=== PATIENT | male | born 2000 | race Caucasian/White ===

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

== ENCOUNTER 2022-09-29 23:14 | Emergency (ER) | payer OTHER, SELFPAY ==
--- NOTE | ~2022-09-29 | CT_ITS ---
Non-contrast Head CT History: Hemorrhage Technique: Axial non-contrast imaging of the brain was performed. Dose reduction technique was used on this scan by utilizing automated exposure control and iterative reconstruction technique. The dose -length product (DLP) was 681.00 mGy-cm. Findings: There is no evidence of intracranial hemorrhage, mass lesion, or acute infarct. Brain par enchyma appears normal. The ventricles and subarachnoid spaces are normal in size. The calvarium ap pears normal. The visualized paranasal sinuses and mastoid air cells are clear. Impression: No significant abnormality seen. Reviewed, dictated and finalized at location . Impression: No significant abnormality seen.
[2022-09-29 23:27] VITALS: BP 126/97; PULSE 79; RESP 20; TEMP 36.6; O2SAT 98
--- NOTE | 2022-09-30 00:25 | ED.GENADULT ---
HPI - General Adult General Chief complaint: Unspecified Stated complaint: Dizziness Time Seen by Provider: 09/29/22 23:34 History of Present Illness HPI narrative: Patient is a 22-year-old white male brought in by his mother. Twelve days ago he had 4 episodes lasting about a minute of the sensation of blood running down the back of his scalp. This was associated with some mild headache. Then he feels funny all over after that. He follow-up with his primary care provider 5 days ago who wanted a MRI scheduled which is to be scheduled tomorrow or the next day. Patient is to call radiology department. Tonight he had 4 more episodes this time not associated with any pain lasting for about a minute with the same sensation of blood running down the back of his scalp associated with a funny feeling all over afterwards. During all these episodes he never had any nausea vomiting blurred vision no motor weakness no problems seeing hearing walking talking. He has a grandfather had history of aneurysm and of that. denies any illicit drug use. Drinks occasional alcohol in the weekends. Denies any pain. Social history: Chews tobacco and vapes. 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 Related Data Home Medications Medication Instructions Recorded Confirmed No Home Medications 09/29/22 09/29/22 Allergies Allergy/AdvReac Type Severity Reaction Status Date / Time No Known Allergies Allergy Verified 10/18/19 15:04 Review of Systems Constitutional: Constitutional: Reports no additional constitutional complaints Eyes: Eyes: Reports no additional eye complaints ENT: Reports system reviewed and no additional complaints, except as documented Cardiovascular: Cardiovascular: Reports no additional cardiovascular complaints Respiratory: Respiratory: Reports no additional respiratory complaints Gastrointestinal: Gastrointestinal: Reports no additional gastrointestinal complaints Genitourinary: Genitourinary: Reports no additional male genitourinary complaints Musculoskeletal: Musculoskeletal: Reports no additional musculoskeletal complaints Neurologic: Reports as per HPI [facility] Surgical History Surgical History History of appendectomy Social History Social History (Updated 10/18/19 @ 14:57 by Saud Parra MD) Smoking status: Never smoker Alcohol intake: never Substance use: never Living arrangements: with family Gender identity (if verbalized by the patient): Male Exam Narrative: White male no apparent distress.? Head normocephalic, atraumatic.? Eyes conjunctiva pink sclera nonicteric.? Extraocular movements are intact.? Ears externally normal. TMs are normal hearing is normal.? Oropharynx is clear with moist mucous membranes without exudates.? Neck is supple nontender no lymphadenopathy. ?Back is nontender.? Lungs are clear.? Heart is regular rate and rhythm without murmurs gallops or rubs.? Chest wall is nontender.? Abdomen is soft and nontender no hepatosplenomegaly or masses no CVA tenderness no abdominal bruits. ?Extremities no cyanosis clubbing or edema. ?Skin is warm and dry without rashes or lesions.? Neurological patient is alert and oriented x4.? Motor and sensory Light touch intact.? Gait is normal. Course Course Emergency Course: Patient had 8 episodes in last 12 days of paresthesias blood sensation dripping down the back of his scalp testing for about a minute scheduled to MRI MRI for concerns of familial aneurysms eye he has grandfather of aneurysm. Nonfocal neurological exam with a normal exam and normal normal vitals. CT of the head without contrast was normal. Evaluation was discussed and patient's mother. He should call tomorrow and schedule his MRI as requested by his primary care provider. With size aneurysm or stroke or tumor he could have a atypical seizure. Vital Signs Vital signs: Vital Signs Temperature 36.6
[2022-09-30 00:40] VITALS: BP 106/76; PULSE 71; RESP 18; O2SAT 98
--- NOTE | 2022-09-30 00:40 | PC.NURSE ---
Pt resting comfortably and awaiting CT results. Mom in room at bedside, explained wait time for CT results, lights dimmed, blanket given, VSS, pt has no c/o.
--- NOTE | 2022-09-30 01:33 | PC.NURSE ---
ERP Dr Mcelroy in to speak c pt and his mother about CT results. POC for d/c home discussed and f/u c [facility]MD for further testing advised. Pt resting comfortably, no c/o, VSS.
[2022-09-30 01:40] VITALS: BP 118/72; PULSE 70; RESP 18; TEMP 36.6; O2SAT 98
--- NOTE | 2022-09-30 01:50 | ED_ITS ---
HPI - General Adult General Chief complaint: Unspecified Stated complaint: Dizziness Time Seen by Provider: 09/29/22 23:34 Related Data Home Medications Medication Instructions Recorded Confirmed No Home Medications 09/29/22 09/29/22 Allergies Allergy/AdvReac Type Severity Reaction Status Date / Time No Known Allergies Allergy Verified 10/18/19 15:04 [facility] Surgical History Surgical History History of appendectomy Social History Social History (Updated 10/18/19 @ 14:57 by Saud Parra MD) Smoking status: Never smoker Alcohol intake: never Substance use: never Living arrangements: with family Gender identity (if verbalized by the patient): Male Course Vital Signs Vital signs: Vital Signs Temperature 36.6 C 09/29/22 23:27 Pulse Rate 79 09/29/22 23:27 Respiratory Rate 20 09/29/22 23:27 Blood Pressure 126/97 H 09/29/22 23:27 Pulse Oximetry 98 09/29/22 23:27 Oxygen Delivery Room Air 09/29/22 23:27 Temperature 36.6 C 09/30/22 01:40 Pulse Rate 70 09/30/22 01:40 Respiratory Rate 18 09/30/22 01:40 Blood Pressure 118/72 09/30/22 01:40 Pulse Oximetry 98 09/30/22 01:40 Oxygen Delivery Room Air 09/30/22 01:40 Medical Decision Making Vital Signs Vital Signs: Vital Signs Temperature 36.6 C 09/29/22 23:27 Pulse Rate 79 09/29/22 23:27 Respiratory Rate 20 09/29/22 23:27 Blood Pressure 126/97 H 09/29/22 23:27 Pulse Oximetry 98 09/29/22 23:27 Oxygen Delivery Room Air 09/29/22 23:27 Temperature 36.6 C 09/30/22 01:40 Pulse Rate 70 09/30/22 01:40 Respiratory Rate 18 09/30/22 01:40 Blood Pressure 118/72 09/30/22 01:40 Pulse Oximetry 98 09/30/22 01:40 Oxygen Delivery Room Air 09/30/22 01:40 Discharge Plan Discharge Clinical Impression: Paresthesia Patient Disposition: Home, Self-Care Condition: Stable Instructions: Paresthesia (ED) Additional Instructions: return if you get worse or develops any new symptoms. All radiology and surgery or MRI as requested by her primary care provider Prescriptions: No Action No Home Medications Follow-up/Referrals: Bren,DANYELL Nieto [Primary Care Provider] - Time of Disposition: 01:37
== END 2022-09-30 01:43 | disposition home or self-care (01) ==
PROVIDERS: Emergency Provider Emergency Medicine; PCP Emergency Medicine
DX: R20.2 Paresthesia of skin (principal)
CPT/HCPCS: 70450; 99284